=== PATIENT | male | born 1970 | race Caucasian/White ===

== ENCOUNTER 2020-10-10 17:15 | Inpatient (IN) | payer BC ==
[~2020-10-10] VITALS: Ht 185.4 cm; Wt 86.0 kg
[2020-10-10] MEDS ORDERED: IV NORMAL SALINE 1,000ML 1,000 ML IV ONE ×2 (18:00)
--- NOTE | 2020-10-10 18:05 | RAD ---
EXAM: Chest, single view. HISTORY: Short of breath. COMPARISON: None. FINDINGS: A frontal view of the chest is obtained. There is no infiltrate, pleural effusion or pneumo thorax. The heart is normal in size. IMPRESSION: No acute pulmonary finding. Electronically signed by: Hollie Carcamo MD (10/10/2020 6:02 PM) [facility]
[2020-10-10 18:07] LABS: BASO # 0.2 x10^3/uL (0.0-0.2); BASO % 2 % (0-3); EOS % 0 % (0-3); HEMATOCRIT 51.9 % (39.0-53.0); HEMOGLOBIN 16.3 g/dL (13.0-17.5); LYMPH # 1.8 x10^3/uL (1.0-4.8); LYMPH % 14 % (24-48); MEAN CORPUSCULAR HEMOGLOBIN 29 pg (25-35); MEAN CORPUSCULAR HGB CONC 31 g/dL (31-37); MEAN CORPUSCULAR VOLUME 94 fL (79-100); MONO # 1.1 x10^3/uL (0.0-1.1); MONO % 9 % (0-9); NEUT # 9.4 x10^3uL (1.8-7.7); NEUT % 75 % (31-73); PLATELET COUNT 444 x10^3/uL (140-400); RED BLOOD COUNT 5.53 x10^6/uL (4.30-5.70); RED CELL DISTRIBUTION WIDTH 16.5 % (11.5-14.5); WHITE BLOOD COUNT 12.5 x10^3/uL (4.0-11.0)
--- NOTE | 2020-10-10 18:12 | EKG ---
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
[2020-10-10 18:59] LABS: ALBUMIN 3.3 g/dL (3.4-5.0); ALBUMIN/GLOBULIN RATIO 0.6 (1.0-1.7); ALK PHOS 100 U/L (46-116); ALT (SGPT) 19 U/L (16-63); AST (SGOT) 7 U/L (15-37); BLOOD UREA NITROGEN 40 mg/dL (8-26); BUN/CREATININE RATIO 18 (6-20); CALCIUM 9.7 mg/dL (8.5-10.1); CHLORIDE 93 mmol/L (98-107); CREATININE 2.2 mg/dL (0.7-1.3); GFR 32.2; POTASSIUM 5.6 mmol/L (3.5-5.1); SODIUM 130 mmol/L (136-145); TOTAL BILIRUBIN 0.4 mg/dL (0.2-1.0); TOTAL PROTEIN 8.4 g/dL (6.4-8.2)
[2020-10-10] MEDS ORDERED: ASPIRIN 325 MG TABLET PO ONE (19:00)
[2020-10-10 19:12] LABS: ANION GAP 32 (6-14); CARBON DIOXIDE < 5 mmol/L (21-32); GLUCOSE 567 mg/dL (70-99)
[2020-10-10 19:15] LABS: MAGNESIUM 2.9 mg/dL (1.8-2.4)
[2020-10-10] MEDS ORDERED: INSULIN REGULAR 100 UNIT/ML 3ML VIAL. IV ONE (19:15)
[2020-10-10 19:27] LABS: CLARITY,URINE CLEAR; COLOR,URINE STRAW
[2020-10-10 19:28] LABS: BILIRUBIN,URINE SMALL (NEG); GLUCOSE,URINE 500 mg/dL (NEG)
[2020-10-10 19:29] LABS: NITRITE,URINE NEG (NEG); UROBILINOGEN,URINE 0.2 mg/dL (0.2 mg/dL)
[2020-10-10 19:30] LABS: BACTERIA,URINE 0 /HPF (0-FEW); SQUAMOUS EPITHELIAL CELL,UR OCC /LPF; WBC,URINE 0 /HPF (0-4)
[2020-10-10] MEDS ORDERED: ONDANSETRON PF 4 MG/2 ML VIAL. IVP ONE (19:30)
--- NOTE | 2020-10-10 19:37 | PHYS DOC ---
Past History Past Medical History: Diabetes, High Cholesterol, Hypertension (MADI BAILEY APRN) Past Surgical History: No Surgical History (MADI BAILEY APRN) Alcohol Use: Occasionally (MADI BAILEY APRN) General Adult EDM: Chief Complaint: HYPERGLYCEMIA HPI: HPI: Patient is a 49-year-old male who presents with shortness of breath. Patient states he has had shortness of breath since yesterday. Patient is a type II diabetic and states he has not taken insulin in the last few months. Patient states "I just did not want to take my insulin anymore". Patient is denying hung n. Denying nausea/vomiting/diarrhea. Patient also has history of hypertension and high cholesterol. (MADI BAILEY APRN) Review of Systems: Review of Systems: Constitutional: Denies fever or chills Eyes: Denies change in visual acuity HENT: Denies nasal congestion or sore throat Respiratory: Denies cough, reports shortness of breath Cardiovascular: Denies chest pain or edema GI: Denies abdominal pain, nausea, vomiting, bloody stools or diarrhea : Denies dysuria Musculoskeletal: Denies back pain or joint pain Integument: Denies rash Neurologic: Denies headache, focal weakness or sensory changes Endocrine: Denies polyuria or polydipsia Lymphatic: Denies swollen glands Psychiatric: Denies depression or anxiety (MADI BAILEY APRN) Current Medications: Current Meds: Current Medications Medications (Trade) Dose Ordered Sig/Hernandez Start Time Stop Time Status Last Admin Dose Admin Aspirin ([place]onte Aspirin) 325 mg 1X ONCE 10/10/20 19:00 10/10/20 19:06 DC 10/10/20 19:20 325 MG Insulin Human Regular (HumuLIN R VIAL) 9 unit 1X ONCE 10/10/20 19:15 10/10/20 19:20 DC 10/10/20 19:28 9 UNIT Ondansetron HCl (Zofran) 4 mg 1X ONCE 10/10/20 19:30 10/10/20 19:31 10/10/20 19:20 4 MG Sodium Chloride 1,000 ml @ 1,000 mls/hr 1X ONCE 10/10/20 18:00 10/10/20 18:59 DC 10/10/20 18:00 1,000 MLS/HR (MADI BAILEY APRN) Allergies: Allergies: Allergies Coded Allergies Type Severity Reaction Last Updated Verified almond Allergy Unknown 10/10/20 Yes (MADI BAILEY APRN) Physical Exam: PE: Constitutional: Well developed, well nourished, no acute distress, non-toxic appearance. [] HENT: Normocephalic, atraumatic, bilateral external ears normal, oropharynx moist, no oral exudates, nose normal. [] Eyes: PERRLA, EOMI, conjunctiva normal, no discharge. [] Neck: Normal range of motion, no tenderness, supple, no stridor. [] Cardiovascular:Heart rate regular rhythm, no murmur [] Lungs & Thorax: Bilateral breath sounds clear to auscultation [] Abdomen: Bowel sounds normal, soft, no tenderness, no masses, no pulsatile masses. [] Skin: Warm, dry, no erythema, no rash. [] Back: No tenderness, no CVA tenderness. [] Extremities: No tenderness, no cyanosis, no clubbing, ROM intact, no edema. [] Neurologic: Alert and oriented X 3, normal motor function, normal sensory function, no focal deficits noted. [] Psychologic: Affect normal, judgement normal, mood normal. [] (MADI BAILEY APRN) Current Patient Data: Labs: Laboratory Tests Test 10/10/20 17:29 10/10/20 17:35 10/10/20 17:47 10/10/20 18:10 Glucose (Fingerstick) 520 mg/dL (70-99) *H White Blood Count 12.5 x10^3/uL (4.0-11.0) H Red Blood Count 5.53 x10^6/uL (4.30-5.70) Hemoglobin 16.3 g/dL (13.0-17.5) Hematocrit 51.9 % (39.0-53.0) Mean Corpuscular Volume 94 fL (79-100) Mean Corpuscular Hemoglobin 29 pg (25-35) Mean Corpuscular Hemoglobin Concent 31 g/dL (31-37) Red Cell Distribution Width 16.5 % (11.5-14.5) H Platelet Count 444 x10^3/uL (140-400) H Neutrophils (%) (Auto) 75 % (31-73) H Lymphocytes (%) (Auto) 14 % (24-48) L Monocytes (%) (Auto) 9 % (0-9) Eosinophils (%) (Auto) 0 % (0-3) Basophils (%) (Auto) 2 % (0-3) Neutrophils # (Auto) 9.4 x10^3uL (1.8-7.7) H Lymphocytes # (Auto) 1.8 x10^3/uL (1.0-4.8) Monocytes # (Auto) 1.1 x10^3/uL (0.0-1.1) Eosinophils # (Auto) 0.0 x10^3/uL (0.0-0.7) Basophils # (Auto) 0.2 x10^3/uL (0.0-0.2) Sodium Level 130 mmol/L (136-145) L Potassium Level 5.6 mmol/L (3.5-5.1) H Chloride Level 93 mmol/L (98-107) L Carbon Dioxide Level < 5 mmol/L (21-32) *L Anion Gap 32 (6-14) H Blood Urea Nitrogen 40 mg/dL (8-26) H Creatinine 2.2 mg/dL (0.7-1.3) H Estimated GFR (Cockcroft-Gault) 32.2 BUN/Creatinine Ratio 18 (6-20) Glucose Level 567 mg/dL (70-99) *H Lactic Acid Level 3.5 mmol/L (0.4-2.0) H Calcium Level 9.7 mg/dL (8.5-10.1) Magnesium Level 2.9 mg/dL (1.8-2.4) H Total Bilirubin 0.4 mg/dL (0.2-1.0) Aspartate Amino Transferase (AST) 7 U/L (15-37) L Alanine Aminotransferase (ALT) 19 U/L (16-63) Alkaline Phosphatase 100 U/L (46-116) Total Protein 8.4 g/dL (6.4-8.2) H Albumin 3.3 g/dL (3.4-5.0) L Albumin/Globulin Ratio 0.6 (1.0-1.7) L Acetone Level Neg (NEG) POC Venous pH 7.03 (7.32-7.42) L POC Venous pCO2 19 mmHg (41-51) L POC Venous pO2 60 mmHg (20-40) H Venous Blood HCO3 5 mmol/L (24-28) L POC Venous O2 Saturation (Donny) 78 % POC FiO2 21 D-Dimer (Sonya) 0.52 mg/L (0.00-0.50) H Test 10/10/20 18:55 10/10/20 19:27 Urine Collection Type Unknown Urine Color Straw Urine Clarity Clear Urine pH 5.0 Urine Specific [place] 1.020 Urine Protein 30 mg/dl (NEG-TRACE) Urine Glucose (UA) 500 mg/dL (NEG) Urine Ketones (Stick) >=160 mg/dL (NEG) Urine Blood Mod (NEG) Urine Nitrite Neg (NEG) Urine Bilirubin Small (NEG) Urine Urobilinogen Dipstick 0.2 mg/dL (0.2 mg/dL) Urine Leukocyte Esterase Neg (NEG) Urine RBC 6-10 /HPF (0-2) Urine WBC 0 /HPF (0-4) Urine Squamous Epithelial Cells Occ /LPF Urine Bacteria 0 /HPF (0-FEW) Urine Mucus Slight /LPF Glucose (Fingerstick) 475 mg/dL (70-99) H Vital Signs: Vital Signs Date Time Temp Pulse Resp B/P (MAP) Pulse Ox O2 Delivery O2 Flow Rate FiO2 10/10/20 17:26 97.5 114 40 125/81 (96) 99 Room Air (MADI BAILEY APRN) EKG: EKG: [] (MADI BAILEY APRN) Radiology/Procedures: Radiology/Procedures: [] (MADI BAILEY APRN) Heart Score: C/O Chest Pain: No Risk Factors: Risk Factors: DM, Current or recent (<one month) smoker, HTN, HLP, family history of CAD, obesity. Risk Scores: Score 0 - 3: 2.5% MACE over next 6 weeks - Discharge Home Score 4 - 6: 20.3% MACE over next 6 weeks - Admit for Clinical Observation Score 7 - 10: 72.7% MACE over next 6 weeks - Early Invasive Strategies (MADI BAILEY APRN) Course & Med Decision Making: Course & Med Decision Making Pertinent Labs and Imaging studies reviewed. (See chart for details) [] Patient is a 49-year male who presents with shortness of breath. Patient has a history of diabetes, hypertension, high cholesterol. Patient is noncompliant and has not taken his insulin in the last few months. Patient's blood sugar was 567 on arrival. Patient given 2 L of normal saline bolus. Patient's blood sugar dropped to 475. 10 units of insulin given and insulin drip ordered. Patient CO2 is less than 5, anion gap 32, creatinine 2.2. Patient's lactic is 3.5. Potassium 5.6, mag of 2.9. Sodium 130. Patient's D-dimer slightly elevated elevated due to metabolic demand. Patient started complaining of chest pain. 325 aspirin given. Repeat EKG shows sinus tachycardia. Heart rate 112 bpm.. Informed patient he will be admitted to the hospital for DKA. Patient agrees with this plan. Spoke with Dr. Tse who agrees to admit patient for DKA. (MADI BAILEY APRN) Course & Med Decision Making I oversaw on the above date of service of this patient and discussed the care with the JACQUARD CARD CUTTER. I assisted with diagnosis and guided management with recommendations to contact hospital service for admission. Have high yet it was the certifying exams were heart related to being honest, I got no that is terrible news! Which hand? And you you would have if you went to an emergency room I agree with the findings, plan of care, and disposition as documented. Electronically signed, Dima Encarnacion, DO Critical Care Time This patient required critical care. Due to the fact that the patient required a significant amount of one on one physician - patient contact time, ordering and review of studies, arranging urgent treatment with development of a management plan, evaluation of patients response to treatment with frequent reassessments, and discussions with other providers this patient required 40 minutes of critical care time. Critical care time was indicated due to the inherent instability and/or potential for instability in this patient. The critical care time that is allocated to this patient is above and beyond any time spent on any other billable procedures performed on this patient. (DIMA ENCARNACION DO) [place] Disclaimer: Dana Disclaimer: This electronic medical record was generated, in whole or in part, using a voice recognition dictation system. (MADI BAILEY APRN) Departure Departure: Impression: Primary Impression: DKA (diabetic ketoacidoses) Qualified Codes: E11.10 - Type 2 diabetes mellitus with ketoacidosis without coma Disposition: ADMITTED INPATIENT Admitting Physician: Rasheed Tse (MADI BALIEY APRN) Admitting Physician: Rasheed Tse (DIMA ENCARNACION DO) Condition: STABLE Referrals: PCP,UNKNOWN (PCP) MADI BAILEY APRN October 10, 2020 19:37 DIMA ENCARNACION DO October 11, 2020 05:07
[2020-10-10] MEDS ORDERED: INSULIN REGULAR VIAL 100 UNIT in IV NORMAL SALINE 100ML 100 ML IV PRN (20:30)
[2020-10-10] MEDS ORDERED: DEXTROSE 50% 25 GM / 50ML DISP.SYRIN. IV PRN (20:30)
--- NOTE | 2020-10-10 21:50 | NUR ---
Pt admitted to ICU bed 4 from ER via [facility], accompanied by EMS and nursing staff. Pt self transferred for gurney to bed independently. Pt here for DKA and SOB. Pt is A&Ox4 but poor historian with medical history and home medications (names and doses). Pt did state that he recently stopped taking all his medications because they made him feel bad. SCDs for VTE. Pt lives at home with friends. Pt has not received any Covid vaccines. Dr Tse called for admission orders and update, orders received - No BMP till AM, NS@100ml/hr and GlucoStabilizer for blood sugar control.
[2020-10-10 22:12] VITALS: BP 115/76
[2020-10-10] MEDS: IV NORMAL SALINE 1,000ML 1,000 ML IV SCH (22:33)
[2020-10-10 22:57] VITALS: BP 142/83
[2020-10-10 23:57] VITALS: BP 113/72
[2020-10-11] VITALS (14 sets, daily range): BP systolic 112–134; BP diastolic 59–81
--- NOTE | 2020-10-11 01:46 | EKG ---
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
[2020-10-11 07:35] LABS: CALCIUM 8.5 mg/dL (8.5-10.1); CREATININE 1.4 mg/dL (0.7-1.3); GFR 54.3; POTASSIUM 3.5 mmol/L (3.5-5.1)
[2020-10-11] MEDS: IV NORMAL SALINE 1,000ML 1,000 ML IV SCH (08:15)
--- NOTE | 2020-10-11 11:11 | HP ---
ADMIT DATE: 10/10/2020 ATTENDING PHYSICIAN: Dr. Tse. CHIEF COMPLAINT: High blood sugar. HISTORY OF PRESENT ILLNESS: The patient is a 49-year-old gentleman with known type 1 diabetes. He has some shortness of breath and vague symptoms of nausea. He is a type 2 diabetic insulin dependent. He has not taken insulin in the last 2 months. He states "I just didn't want to take insulin anymore." He was denying any pain, fever, chills or COVID exposure. In the ED, the laboratory studies showed admission blood sugar of 500. The anion gap was 41. He was acidotic. He was admitted then for further treatment and evaluation. Insulin drip was started. PAST MEDICAL HISTORY: Significant for hypertension and hyperlipidemia. CURRENT MEDICATIONS: He was supposed to be taking lisinopril, unknown dosage along with Mevacor along with his insulin. He has not taken those medicines either. PAST SURGICAL HISTORY: He has no surgical history. SOCIAL HISTORY: He is a nonsmoker, nondrinker. FAMILY HISTORY: Mom of complications of heart disease at age 64. He did not know his biologic father. REVIEW OF SYSTEMS: Unremarkable for any recent COVID exposure, fevers, chills, cough, congestion, palpitation. All other systems reviewed and turned to be negative. PHYSICAL EXAMINATION: GENERAL: When I saw him, this is a pleasant middle-aged gentleman. INITIAL VITAL SIGNS: Showed a blood pressure of 130/76, pulse is 99 and regular. He was afebrile, oxygen saturation 99% on room air. HEENT: Head is without trauma. Pupils are reactive. Sclerae nonicteric. Oropharynx is clear. NECK: Supple, no bruits identified. LUNGS: Otherwise clear. CARDIOVASCULAR: Regular heart tones. No gallops. ABDOMEN: Soft. No guarding or rebound tenderness. Bowel sounds are hypoactive. EXTREMITIES: Show no cyanosis or edema. NEUROLOGIC: Focally intact. Speech is fluent. Business Control Specialist are symmetrical. SKIN: Warm and dry. PERTINENT LABORATORY STUDIES: As noted elevated blood sugar over 500. Anion gap was ____ on admission. ASSESSMENT: 1. A 49-year-old gentleman, type 2 diabetic with diabetic ketoacidosis. 2. Noncompliance of medications. 3. Hyperlipidemia. 4. Essential hypertension. PLAN: 1. Admit to the ICU. 2. Glucose stabilizer protocol initiated with insulin drip. 3. Noncaloric diet. 4. Followup chemistries. 5. Resume home meds. RADHA/VINAY DR: Dennis TID: [id number]
[2020-10-11] MEDS: INSULIN LISPRO 300 UNITS/3 ML VIAL. SQ SCH ×2 (12:00→19:24)
[2020-10-11] MEDS ORDERED: ACETAMINOPHEN 325 MG TABLET PO PRN (12:45)
[2020-10-11] MEDS ORDERED: INSULIN GLARGINE SYRINGE. SQ SCH (21:00)
[2020-10-12 03:00] VITALS: BP 110/75
[2020-10-12 06:33] VITALS: BP 97/70
[2020-10-12 07:48] LABS: CALCIUM 8.1 mg/dL (8.5-10.1); GFR 80.1
[2020-10-12] MEDS: INSULIN LISPRO 300 UNITS/3 ML VIAL. SQ SCH (08:17)
[2020-10-12 09:46] VITALS: BP 124/74
--- NOTE | 2020-10-12 10:20 | NUR ---
DISCHARGE NOTE Pt discharged today by Dr. Tse. Pt verbalized understanding of discharge paperwork and hard copy prescriptions. All questions addressed. Pt ambulated out of hospital and picked up by roommate. VSS and GCS 15 upon discharge. CC, RN
--- NOTE | 2020-10-12 14:37 | DS ---
DATE OF DISCHARGE: 10/12/2020 ATTENDING PHYSICIAN: Dr. Tse. FINAL DISCHARGE DIAGNOSES: 1. Diabetic ketoacidosis. 2. Uncontrolled diabetes. 3. Dehydration. 4. Hypokalemia, treated. HISTORY AND PHYSICAL: The patient is a pleasant 49-year-old gentleman who is an insulin-dependent diabetic. For some reason, he decided he was not going to take his insulin anymore. He ran out of insulin, had not taken it for 2 months. He presented to the ED with vague symptoms of dehydration, abdominal symptoms, no acute problems. His blood sugar on admission was over 500. The anion gap was 31. He was quite acidotic. He was admitted for further treatment. Clinically, he was dehydrated. PHYSICAL EXAMINATION: Please see my dictated note. PERTINENT LABORATORY AND X-RAY STUDIES: Admission blood sugar was 567, repeated was down to the mid 100s. The anion gap was elevated. Subsequent sugars came down. His electrolytes at discharge showed a sodium of 138, potassium 3.0 mEq. No symptoms. Creatinine was 1.0 mg/dL. Hemoglobin was 16.3 g/dL in a hemoconcentrated state, white count 12,500. COURSE IN HOSPITAL: The patient was admitted to ICU. He was started on insulin drip following the glucose stabilizer protocol. He did well. Sugars were better on the next day. He was switched to sliding to q.i.d. Accu-Cheks with regular before each meals and a shot of Lantus at night. Hydration was continued and diet was advanced. On the third hospital day, his vital signs were stable. Sugars were in the mid 100s. Potassium was still diminished at 3.0 mEq. He was asymptomatic without any arrhythmias. He was ready for discharge. At this time, I recommended 25 units of regular insulin before each meal 3 times a day and 25 units of Lantus at night. I wrote scripts for NovoPen to help deliver the insulin. In addition, I recommended 10 more days of K-Dur 20 mEq p.o. daily. I suggested that the patient can follow in 2 weeks with Rina Garzon for followup. He was discharged from our hospital in stable condition with explicit drug and followup care. CHAPARRITA DR: Dennis TID: [id number] CC: NIMA Robbins
== END 2020-10-12 10:20 | disposition home or self-care (01) | DRG 637 ==
LOC: ER 17:15 → ICU 20:24
PROVIDERS: ADMIT Hospitalist; ATTEND Hospitalist
DX: E10.10 Type 1 diabetes mellitus with ketoacidosis without coma (principal); N17.0 Acute kidney failure with tubular necrosis; E78.00 Pure hypercholesterolemia, unspecified; E78.5 Hyperlipidemia, unspecified; E86.0 Dehydration; E87.6 Hypokalemia; I10 Essential (primary) hypertension; Z79.4 Long term (current) use of insulin; Z91.14 Patient's other noncompliance with medication regimen; Z79.899 Other long term (current) drug therapy
CPT/HCPCS: 36415; 71045; 80048; 80053; 81001; 82010; 82803; 82947; 83605; 83735; 83930; 85025; 85379; 93005; 96361; 96374; 96375; 99291; J1815; J2405; J7030